=== PATIENT | female | born 1985 | race African-American/Black ===

== ENCOUNTER 2019-04-10 14:58 | Inpatient (IN) | payer MEDICAID ==
[~2019-04-10] VITALS: Ht 170.2 cm; Wt 70.4 kg
[2019-04-10 16:30] VITALS: BP 96/54
[2019-04-10 16:33] VITALS: BP 96/54
[2019-04-10] MEDS: BLOOD SUGAR DIAGNOSTIC 1 EACH STRIP IN SCH ×2 (17:59→22:39)
[2019-04-10 18:25] LABS: BASOPHILS % (AUTO) 0.7 % (0.0-2.0); EOSINOPHILS % (AUTO) 2.2 % (0.0-6.0); HEMATOCRIT 40 % (33-45); LYMPHOCYTES # (AUTO) 2.8 /CMM (0.8-4.8); LYMPHOCYTES % (AUTO) 55.3 % (20.0-44.0); MEAN CORPUSCULAR HGB CONC 33 g/dl (31.0-36.0); MEAN CORPUSCULAR VOLUME 89 fL (82-100); MONOCYTES # (AUTO) 0.4 /CMM (0.1-1.30); MONOCYTES % (AUTO) 8.2 % (2.0-12.0); NEUTROPHILS # (AUTO) 1.7 /CMM (1.8-8.9); NEUTROPHILS % (AUTO) 33.6 % (43.0-81.0); PLATELET COUNT (AUTO) 269 /CMM (150-450); RED BLOOD CELL COUNT(AUTO) 4.51 MIL/uL (4.0-5.2)
[2019-04-10 18:29] LABS: APPEARANCE,URINE CLEAR (CLEAR); BILIRUBIN,URINE NEGATIVE (NEGATIVE); BLOOD, URINE NEGATIVE Ery/uL (NEGATIVE); COLOR,URINE YELLOW (YELLOW); KETONES,URINE NEGATIVE (NEGATIVE); LEUKOCYTE ESTERASE ,URINE NEGATIVE (NEGATIVE); NITRITE, URINE NEGATIVE (NEGATIVE); PROTEIN,URINE NEGATIVE (NEGATIVE); UGLUCOSE NEGATIVE (NEGATIVE); UROBILINOGEN,URINE 0.2 EU/dL (0.2)
[2019-04-10 18:40] LABS: CALCIUM, SERUM 8.4 mg/dL (8.5-10.1); CREATININE 1.1 mg/dL (0.6-1.3); POTASSIUM 3.8 mmol/L (3.5-5.1)
[2019-04-10 18:51] LABS: ALBUMIN 3.6 g/dL (3.4-5.0); BILIRUBIN,TOTAL 0.9 mg/dL (0.2-1.0); MAGNESIUM 1.8 mg/dL (1.8-2.4)
[2019-04-10 18:52] LABS: THYROID STIMULATING HORMONE 1.077 uIU/mL (0.358-3.74)
[2019-04-10 20:00] VITALS: BP 97/55
[2019-04-10] MEDS: SIMVASTATIN 10 MG TABLET PO SCH (22:00)
[2019-04-11] VITALS: BP 90/55
[2019-04-11 04:00] VITALS: BP 94/63
[2019-04-11 07:11] LABS: BASOPHILS % (AUTO) 0.8 % (0.0-2.0); EOSINOPHILS % (AUTO) 4.3 % (0.0-6.0); HEMATOCRIT 39 % (33-45); HEMOGLOBIN 12.9 g/dL (11.5-14.8); MEAN CORPUSCULAR HGB CONC 33 g/dl (31.0-36.0); MEAN CORPUSCULAR VOLUME 88 fL (82-100); MONOCYTES # (AUTO) 0.5 /CMM (0.1-1.30); MONOCYTES % (AUTO) 10.5 % (2.0-12.0); NEUTROPHILS # (AUTO) 2.3 /CMM (1.8-8.9); NEUTROPHILS % (AUTO) 45.4 % (43.0-81.0); PLATELET COUNT (AUTO) 271 /CMM (150-450); RED BLOOD CELL COUNT(AUTO) 4.45 MIL/uL (4.0-5.2); WHITE BLOOD COUNT (AUTO) 5.1 K/uL (4.3-11.0)
[2019-04-11] MEDS: BLOOD SUGAR DIAGNOSTIC 1 EACH STRIP IN SCH ×4 (07:29→21:14)
[2019-04-11 07:38] LABS: CALCIUM, SERUM 8.5 mg/dL (8.5-10.1); POTASSIUM 3.9 mmol/L (3.5-5.1)
[2019-04-11] MEDS: PANTOPRAZOLE 40 MG TABLET.DR PO SCH (07:46)
[2019-04-11 08:00] VITALS: BP 98/68
[2019-04-11] MEDS: ASPIRIN EC 325 MG TABLET.DR PO SCH (08:03)
[2019-04-11] MEDS: ACETAMINOPHEN 325 MG TABLET PO PRN ×2 (12:53→20:36)
[2019-04-11 16:00] VITALS: BP 93/62
[2019-04-11 20:00] VITALS: BP 102/63
[2019-04-11] MEDS: SIMVASTATIN 10 MG TABLET PO SCH (21:14)
[2019-04-12] MEDS: ACETAMINOPHEN 325 MG TABLET PO PRN ×3 (03:56→21:47)
[2019-04-12 04:00] VITALS: BP 96/60
[2019-04-12] MEDS: BLOOD SUGAR DIAGNOSTIC 1 EACH STRIP IN SCH (07:11)
[2019-04-12] MEDS: PANTOPRAZOLE 40 MG TABLET.DR PO SCH (07:15)
[2019-04-12 08:00] VITALS: BP 96/58
[2019-04-12] MEDS: ASPIRIN EC 325 MG TABLET.DR PO SCH (09:09)
[2019-04-12 12:00] VITALS: BP 96/58
[2019-04-12] MEDS ORDERED: GABA-532 PO (13:18)
[2019-04-12 16:00] VITALS: BP 112/71
[2019-04-12 20:00] VITALS: BP 93/58
[2019-04-12] MEDS: SIMVASTATIN 10 MG TABLET PO SCH (21:17)
[2019-04-12] MEDS ORDERED: MORPHINE SULFATE INJ 4 MG/ML DISP.SYRIN IV PRN (22:30)
[2019-04-13 04:00] VITALS: BP 105/69
[2019-04-13 08:00] VITALS: BP 92/56
[2019-04-13] MEDS: ASPIRIN EC 325 MG TABLET.DR PO SCH (08:02)
[2019-04-13] MEDS: ACETAMINOPHEN 325 MG TABLET PO PRN ×2 (08:02→17:47)
[2019-04-13] MEDS: PANTOPRAZOLE 40 MG TABLET.DR PO SCH (08:02)
[2019-04-13 08:05] VITALS: BP 92/56
[2019-04-13 16:00] VITALS: BP 112/72
[2019-04-13 16:03] VITALS: BP 112/72
[2019-04-13 20:00] VITALS: BP 96/60
[2019-04-13] MEDS ORDERED: methylPREDNISolone SOD SUCC 125 MG/2ML VIAL ONE (20:17)
[2019-04-13] MEDS: SIMVASTATIN 10 MG TABLET PO SCH (21:17)
[2019-04-13] MEDS: methylPREDNISolone SOD SUCC 500 MG in IV NS 0.9% 100 ML IV SCH (22:39)
[2019-04-14] MEDS: PANTOPRAZOLE 40 MG TABLET.DR PO SCH (07:43)
[2019-04-14 08:00] VITALS: BP 108/69
[2019-04-14] MEDS: methylPREDNISolone SOD SUCC 500 MG in IV NS 0.9% 100 ML IV SCH (09:01)
[2019-04-14] MEDS: ASPIRIN EC 325 MG TABLET.DR PO SCH (09:01)
[2019-04-14] MEDS: ACETAMINOPHEN 325 MG TABLET PO PRN ×2 (15:05→22:04)
[2019-04-14 16:00] VITALS: BP 104/63
[2019-04-14 19:49] LABS: CSF GLUCOSE 93 mg/dL (40-70); CSF PROTEIN 30.8 mg/dL (15-45)
[2019-04-14 20:00] VITALS: BP 101/60
[2019-04-14] MEDS: SIMVASTATIN 10 MG TABLET PO SCH (22:00)
[2019-04-15 04:00] VITALS: BP 100/66
[2019-04-15 08:00] VITALS: BP 90/53
[2019-04-15] MEDS: PANTOPRAZOLE 40 MG TABLET.DR PO SCH (08:03)
[2019-04-15] MEDS: ASPIRIN EC 325 MG TABLET.DR PO SCH (08:04)
[2019-04-15] MEDS: methylPREDNISolone SOD SUCC 500 MG in IV NS 0.9% 100 ML IV SCH (09:00)
[2019-04-15] MEDS: ACETAMINOPHEN 325 MG TABLET PO PRN ×2 (09:31→16:14)
[2019-04-15 11:48] VITALS: BP 114/74
[2019-04-15 16:00] VITALS: BP 113/71
== END 2019-04-15 17:04 | disposition home or self-care (01) | DRG 347 ==
LOC: TELE1 16:10 → MEDSG1 04-11 10:04
PROVIDERS: ATTEND Internal Medicine
PROC: B01BYZZ Fluoroscopy of Spinal Cord using Other Contrast (ICD-10-PCS; principal; 2019-04-14)
PROC: 009U3ZX Drainage of Spinal Canal, Percutaneous Approach, Diagnostic (ICD-10-PCS; principal; 2019-04-14)
DX: M54.81 Occipital neuralgia (principal); G35 Multiple sclerosis; G89.29 Other chronic pain; G43.809 Other migraine, not intractable, without status migrainosus; Z88.2 Allergy status to sulfonamides; Z98.890 Other specified postprocedural states; Q25.0 Patent ductus arteriosus
CPT/HCPCS: 36415; 62270; 70544-TC; 70551-TC; 73502; 80048-TC; 80053-TC; 80061-TC; 80305; 81000-TC; 82962-TC; 83735-TC; 83880; 84155-TC; 84157; 84166; 84443-TC; 84703-TC; 85025-TC; 85652-TC; 85730-TC; 87081-TC; 87086-TC; 89051-TC; 92611-TC; 93307-TC; 97116-TC; 97530-TC; G0378; J2930; J7030; J7050

== ENCOUNTER 2020-04-23 12:34 | Emergency (ER) | payer MEDICAID ==
[~2020-04-23] VITALS: Ht 167.6 cm; Wt 70.8 kg
[~2020-04-23 12:34] MED LIST: GABA-532 PO
--- NOTE | 2020-04-23 12:38 | NUR ---
[id number] c/o LLE weakness s/p getting lidocaine shot. LKW 1157. Patient a/ox4, verbally responsive, Dr. espinosa at bedside for eval. Called Code stroke.
--- NOTE | 2020-04-23 12:42 | NUR ---
PATIENT TAKEN TO RADIOLOGY FOR CT.
[2020-04-23] MEDS ORDERED: AMIT25TA9 PO (12:51)
[2020-04-23] MEDS ORDERED: ASPI-1498 PO (12:51)
[2020-04-23] MEDS ORDERED: TOPI25TA49 PO (12:51)
[2020-04-23] MEDS ORDERED: CYAN-51 PO (12:51)
[2020-04-23 12:54] LABS: BASOPHILS # (AUTO) 0.1 /CMM (0.0-0.2); BASOPHILS % (AUTO) 1.2 % (0.0-2.0); EOSINOPHILS % (AUTO) 2.3 % (0.0-6.0); HEMATOCRIT 40 % (33-45); LYMPHOCYTES # (AUTO) 2.8 /CMM (0.8-4.8); LYMPHOCYTES % (AUTO) 57.5 % (20.0-44.0); MEAN CORPUSCULAR HGB CONC 33 g/dl (31.0-36.0); MEAN CORPUSCULAR VOLUME 89 fL (82-100); MONOCYTES # (AUTO) 0.4 /CMM (0.1-1.30); MONOCYTES % (AUTO) 7.8 % (2.0-12.0); NEUTROPHILS # (AUTO) 1.5 /CMM (1.8-8.9); NEUTROPHILS % (AUTO) 31.2 % (43.0-81.0); PLATELET COUNT (AUTO) 284 /CMM (150-450); RED BLOOD CELL COUNT(AUTO) 4.47 MIL/uL (4.0-5.2); WHITE BLOOD COUNT (AUTO) 4.9 K/uL (4.3-11.0)
--- NOTE | 2020-04-23 12:56 | NUR ---
[facility] SCORE 5 AT THIS TIME. ASKED PATIENT TO LIFT LEFT LOWER LEG, PATIENT STS "I CANT MOVE MY LEG"
[2020-04-23 13:04] LABS: CALCIUM, SERUM 9.2 mg/dL (8.5-10.1); CARBON DIOXIDE 28 mmol/L (21-32); CHLORIDE 102 mmol/L (98-107); CREATININE 1.1 mg/dL (0.6-1.3); GLUCOSE 78 mg/dL (74-106); POTASSIUM 3.8 mmol/L (3.5-5.1); SODIUM SERUM 140 mmol/L (136-145); UREA NITROGEN, BLOOD 9 mg/dL (7-18)
--- NOTE | 2020-04-23 13:10 | NUR ---
DR. EMANUEL TELE NEURO ON THE MONITOR FOR EVALUATION.
[2020-04-23 13:13] LABS: CHOLESTEROL 169 mg/dL (<200); HDL CHOLESTEROL 78 mg/dL (40-60); LDL 90 mg/dL (0-99); TRIGLYCERIDES 33 mg/dL (30-150)
--- NOTE | 2020-04-23 13:16 | NUR ---
DR. EMANUEL ASKED PATIENT TO WALK. PATIENT WAS ABLE TO STAND WITH MINIMAL ASSIST WALKED SLOWLY BUT STEADY WITH SUPERVISION.
--- NOTE | 2020-04-23 13:24 | NUR ---
DR. EMANUEL ON THE PHONE WITH DR. GARCIA. WILL HOLD OFF ON THE TPA, DR. EMANUEL RECOMMENDS A CTA.
[2020-04-23] MEDS ORDERED: IOHEXOL-350 100 ML VIAL IV ONE (13:31)
[2020-04-23] MEDS ORDERED: IV NS 0.9% 250 ML IV ONE (13:32)
--- NOTE | 2020-04-23 13:32 | NUR ---
PATIENT TAKEN TO RADIOLOGY.
--- NOTE | 2020-04-23 13:59 | NUR ---
DR. EMANUEL TELE NEURO ON THE MONITOR AGAIN FOR RE-ASSESSMENT. AFTER RE-EVALUATION, PT DID STS SHE FEELS LIKE HER SYMPTOMS HAS IMPROVED. WAS ABLE TO WALK INDEPENDENTLY WITH NO DIFFICULTY. DR. EMANUEL EXPLAINED RISKS AND BENEFITS OF TPA. AND DISCUSSED WITH THE PATIENT RE: TPA ADMINISTRATION OR NOT. BOTH PATIENT AND AGREED NOT TO GO THROUGH WITH TPA AT THIS TIME.
--- NOTE | 2020-04-23 14:41 | NUR ---
covid antigen swab obtained , labaled and sent to lab
[2020-04-23] MEDS ORDERED: ASPIRIN 81 MG TAB.CHEW PO ONE (15:00)
[2020-04-23] MEDS ORDERED: ASPIRIN 81 MG TAB.CHEW ONE (15:01)
--- NOTE | 2020-04-23 15:24 | NUR ---
PATIENT IS VERBALIZING SHE WANTS TO LEAVE AGAINST MEDICAL ADVICE. INFORMED PATIENT OF RISKS OF LEAVING WITHOUT PROPER TREATMENT. DR. OMTA MADE AWARE AND WILL TALK TO MOM AND PATIENT.
--- NOTE | 2020-04-23 15:55 | NUR ---
PER PATIENT SHE WAS TALKING TO HER PMD THAT SHE WILL BE ABLE TO GET A RUSHED OUTPATIENT MRI.
--- NOTE | 2020-04-23 15:57 | NUR ---
DR. MOTA AT BEDSIDE. TALKING TO PATIENT RE: THE CONSEQUENCES OF LEAVING AMA. PATIENTS STATED SHE UNDERSTANDS THE RISKS. Patient does not wish to proceed with medical care recommended by Dr. MOTA. Patient given information related to possible complications, up to and including , which could occur as a result of leaving the hospital at this time. Patient verbalizes understanding of risks involved due to leaving against medical advice. Patient has signed AMA form. IV removed. Catheter intact and site benign. Pressure and 4x4 applied to site. No bleeding noted. Patient discharged to home in stable condition. Written and verbal after care instructions given. Patient verbalizes understanding of instruction.
[2020-04-23 16:01] VITALS: BP 115/75
== END 2020-04-23 16:06 | disposition left against medical advice (07) ==
LOC: ER 12:41
DX: R53.1 Weakness (principal); Q25.0 Patent ductus arteriosus; Z88.2 Allergy status to sulfonamides; Z88.8 Allergy status to other drugs, medicaments and biological substances; Z91.013 Allergy to seafood; Z79.82 Long term (current) use of aspirin; Z79.899 Other long term (current) drug therapy; G83.24 Monoplegia of upper limb affecting left nondominant side; S06.9X0S Unspecified intracranial injury without loss of consciousness, sequela; V49.9XXS Car occupant (driver) (passenger) injured in unspecified traffic accident, sequela; Z20.822 Contact with and (suspected) exposure to COVID-19
CPT/HCPCS: 36415; 70450; 70496; 70498; 71045; 72125; 80048; 80061; 82962; 84484; 85025; 85730; 87426; 93005; 99291; C9803; J7050; Q9967